=== PATIENT | female | born 2000 | race Caucasian/White ===

== ENCOUNTER → 2020-07-23 11:28 | Outpatient (BNVA) | payer OTHER, SELFPAY | PROVIDERS: Family Provider Pediatrics Adolescent Medicine; Visit Provider Obstetrics & Gynecology | DX: Z12.4 Encounter for screening for malignant neoplasm of cervix (principal) | CPT/HCPCS: 88175 ==

== ENCOUNTER → 2023-10-09 10:39 | Outpatient (BNVA) | payer OTHER, SELFPAY | PROVIDERS: Family Provider Pediatrics Adolescent Medicine; Referring Provider Nurse Practitioner Family; Visit Provider Physician Assistant | DX: M25.532 Pain in left wrist (principal); M67.432 Ganglion, left wrist | CPT/HCPCS: 73110 ==

== ENCOUNTER 2023-11-11 10:18 | Day surgery (SDC) | payer OTHER, SELFPAY ==
[2023-11-11 10:40] VITALS: BMI 31.9
--- NOTE | 2023-11-11 10:49 | W.PM.OPSFHP ---
Same Day Surgery H&P Indication for Procedure/HPI DATE OF PROCEDURE: November 11, 2023 CHIEF COMPLAINT/INDICATIONFOR SURGICAL PROCEDURE: Left dorsal wrist ganglion cyst PREOP DIAGNOSIS: Left dorsal wrist ganglion cyst PLANNED PROCEDURE: Operation Date: 11/11/23 11:30 Proposed Procedures p Excision Of Ganglion Cyst/ Left dorsal wrist ganglion cyst excision(Left) - Volodymyr Arreola DO Medications/Allergies* Allergies/Adverse Reactions Allergy/AdvReac Type Severity Reaction Status Date / Time No Known Allergies Allergy Verified 11/10/23 14:02 Pertinent History/Comorbid Conditions* Medical History (Updated 10/09/23 @ 11:25 by YELENA Barnett) No pertinent past medical history neghx:htn,dm,thyroid,dvt/pe PCP: none Surgical History (Updated 07/26/20 @ 18:34 by Quentin Lezama MD) S/P wisdom tooth extraction (~2018) Family History (Updated 07/30/21 @ 13:57 by Meaghan Nesbitt LPN) Colon cancer Grandfather Paternal---- dx age 57. Ovarian cancer Family/Other Maternal Aunt--- dx age 60. Breast cancer Grandmother Paternal---dx age 60. Hypertension Mother Father Denies family history of Diabetes Heart disease Hypercholesteremia Thyroid disease Stroke Pertinent Exam Findings alert, oriented x 3, operative site marked and procedure specific exam findings Patient has a palpable mobile cyst roughly 1.5 to 2 cm in size over the dorsal aspect of the wrist please refer to detailed orthopedic office note on 10/09/2023: Left wrist-tender palpable nodule approximately 1 cm in diameter on dorsal aspect of wrist. It is soft and mobile. No erythema, warmth or wound or purulent drainage seen. No concern for abscess. Patient has full range of motion of wrist. Fingers are warm and well-perfused. Recommendations Surgery/Procedure today Other Plans: Plan to proceed to the OR today for left dorsal wrist ganglion cyst excision. Patient understands the ins and outs procedure risk benefits complication alternatives of surgery. Risk of surgery include not limited to make a better make it worse persistent pain possible cyst recurrence and further surgery, risk stiffness and incisional site paresthesias. Understanding risk of surgery elects proceed all questions answered at this time. Coding Level of Care Code Acute Code for Chg Fwd
--- NOTE | 2023-11-11 10:53 | ANES.PREANE2 ---
Pre-Anesthetic Assessment Height/Weight: Height 1.73 m Weight 95.254 kg Preop Diagnosis: Left dorsal wrist ganglion cyst Operation Date: 11/11/23 11:30 Proposed Procedures p Excision Of Ganglion Cyst/ Left dorsal wrist ganglion cyst excision(Left) - Volodymyr Arreola DO Familial anesthetic complications: None Was Beta Royal taken within 24 hours: N/A Was Clonidine taken within 24 hours: N/A Last intake: > 8 hrs Social No alcohol and No tobacco Exam alert, oriented x 3, clear to auscultation bilaterally and regular rate & rhythm Airway Mallampati: Class II Dentition: other (permanent crown front top) Anesthetic Plan ASA status: 1 Anesthesia: Choice Risk of > 500 ml blood loss (7ml/kg in children): No Medications/Allergies Home Medications Medication Instructions Recorded Confirmed Last Taken Type norgestimate 0.25 mg-ethinyl 1 tab PO DAILY #84 tabs 08/02/21 11/10/23 11/10/23 Rx estradiol 35 mcg tablet (Sprintec ` (28)) hydrocodone 5 mg-acetaminophen 325 1 tab PO Q6H PRN pain 5 days #20 11/11/23 Unknown Rx mg tablet tabs ondansetron 4 mg disintegrating 4 mg PO Q8H PRN nausea and 11/11/23 Unknown Rx tablet vomiting 3 days #9 tabs Allergies Allergy/AdvReac Type Severity Reaction Status Date / Time No Known Allergies Allergy Verified 11/10/23 14:02 [facility] Anesthesia Medical History No pertinent past medical history neghx:htn,dm,thyroid,dvt/pe PCP: none Surgical History S/P wisdom tooth extraction (~2018) Family History Family/Other Ovarian cancer Maternal Aunt--- dx age 60. Grandmother Breast cancer Paternal---dx age 60. Grandfather Colon cancer Paternal---- dx age 57. Mother Hypertension Father Hypertension Denies family history of Diabetes Heart disease Hypercholesteremia Thyroid disease Stroke Data Anesthesia Cardiac Studies: No Data to Display
[2023-11-11] MEDS: ketorolac 30 mg/mL INJ IVP (10:58)
[2023-11-11] MEDS: scopolamine 1.5 Patch 1 PATCH TRANSDERMA (10:58)
[2023-11-11] MEDS: acetaminophen 1,000 MG/100 ML PIGGYBACK 400 MG IV (10:59)
[2023-11-11] MEDS: sodium chloride 0.9% 1,000 ML 30 ML IV (11:05)
[2023-11-11] MEDS: ceFAZolin 2,000 MG in sodium chloride 0.9% (plus) 50 ML 100 MG IV (11:08)
[2023-11-11] MEDS: lidocaine-epi 1% PF 1:200,000 30 mL SDV INJECTION (11:11)
[2023-11-11] MEDS: ROPivacaine 0.5% SDV 30 mL 150 MG (11:11)
[2023-11-11] MEDS: sodium bicarbonate 4.2% 0.5 mEq/mL SDV 5mL 1 MEQ INTRADERMA (11:11)
[2023-11-11 11:18] LABS: OR HCG Qualitative Urine Negative (Negative)
[2023-11-11 12:13] VITALS: BP 101/69; PULSE 99; RESP 20; TEMP 36.1; O2SAT 97
[2023-11-11 12:18] VITALS: BP 91/70; PULSE 102; RESP 22; O2SAT 98
--- NOTE | 2023-11-11 12:21 | W.PM.BPON ---
Date of Procedure: [November 11, 2023] Surgeon: [Dr. Elba DO] Superintendent Drilling(s): [Elio Arreola PA-C] Procedure(s) performed: [Left dorsal wrist cyst excision] Findings of the procedure(s): [Left dorsal wrist ganglion cyst] Estimated blood loss: [5 ml] Specimen(s) removed: [Cyst removed and sent to pathology for testing] Post-operative diagnosis: [Left dorsal wrist ganglion cyst]
[2023-11-11 12:23] VITALS: BP 115/74; PULSE 93; RESP 22; O2SAT 99
--- NOTE | 2023-11-11 12:23 | PM.PACU ---
PACU note Narrative: Patient is a 23-year-old female that just underwent a left wrist ganglion cyst excision. Patient transferred to PACU in stable condition. Pain is well controlled. Splint and Dressing on hand is dry and in place. Patient's fingers are warm and well-perfused. Patient can wiggle fingers. normal cap refill under 2 seconds. Patient has normal elbow range of motion. Sensation to hand intact Exam: awake Disposition: discharged
[2023-11-11 12:28] VITALS: BP 106/75; PULSE 92; RESP 19; O2SAT 99
[2023-11-11 12:31] VITALS: BP 115/62; PULSE 77; RESP 17; TEMP 36.1; O2SAT 99
[2023-11-11 12:47] VITALS: BP 123/75; PULSE 68; RESP 18; TEMP 36.1; O2SAT 98
--- NOTE | 2023-11-11 13:00 | ANE.PACU2 ---
Inpatient post-anesthesia follow up: Airway intact: Yes Vital signs: Temperature 97 F Pulse Rate 68 Respiratory Rate 18 Blood Pressure 123/75 Pulse Oximetry 98 Oxygen Delivery Me thod Room Air Oxygen Flow Rate Fraction of Inspir ed Oxygen Hydration adequate: Yes Nausea and vomiting: No Pain level: 1 Mental status: Baseline
--- NOTE | 2023-11-11 14:20 | P.OP_ITS ---
Operative Report Date of procedure: November 11, 2023 Surgeon: Volodymyr Arreola DO Surgical Instrument Maker: Elio Arreola PA-C: PA was necessary for assistance in this case with hand positioning to execute the procedure, retraction and protection of neurovascular structures as well as to assist with wound closure and dressing application. Procedure: Preoperative diagnosis: Left dorsal wrist ganglion cyst Postoperative diagnosis: Same procedure Left dorsal wrist?ganglion?cyst excision Specimens removed/disposition: Left dorsal wrist?ganglion?cyst excised and sent for pathology Surgeon: Volodymyr Arreola DO Estimated blood loss: 5mL Tourniquet time 18minutes IV fluids: See anesthesia record Complications: None Findings: See operative report narrative Condition: stable Disposition: same day Brief History: Patient's been worked up in the outpatient setting and findings consistent with preoperative diagnosis.? Patient has a Left dorsal wrist?ganglion?cyst.? Patient has attempted conservative treatment and this has become significantly painful.? We talked about treatment options as far as nonoperative and operative intervention.? At this point time patient like a more permanent solution in the lowest chance of recurrence and as result through shared decision making we agreed to proceed with a Left dorsal wrist?ganglion?cyst excision.? Patient understands risk benefits complication alternatives surgical nonsurgical treatment options.? Understanding risk of surgery patient agrees to proceed.? All questions answered.? Consent obtained in the office. Procedure: Patient seen evaluate in the preoperative holding area.? Consent was signed and reviewed with patient.? All questions were answered at that time.? Correct extremity was then marked.? Once seen evaluated by anesthesia patient was then brought back to the operative suite.? Patient was then placed in supine position all bony prominences well-padded patient was properly secured to the bed.? An armboard was then applied for the Left upper extremity.? A nonsterile tourniquet was applied to the Left upper extremity arm.? Patient then underwent anesthesia per the anesthesia department.? Once appropriately anesthetized the Left upper extremity was then prepped and draped in standard orthopedic fashion.? Final timeout performed.? Patient received appropriate preoperative antibiotics. Under sterile aseptic technique I began with local anesthetic for my preplanned surgical site.? Then I utilized an Esmarch tourniquet to exsanguinate the Left upper extremity to 250 mmHg Patient had a large soft mobile?ganglion?cyst which a incision was then centered longitudinally directly over the cyst over the dorsal aspect of the Left wrist.? sharp scalpel incision was made through skin and subcutaneous tissue.? I then switched to dissection scissors and spread longitudinally to identify branches of the superficial radial nerve.? These were protected throughout the case.? I immediately encountered the?ganglion?cyst which was just distal to the extensor retinaculum and between the third and fourth dorsal compartments.? I then protected the tendons and identified the?ganglion?cyst subsequently dissected circumferentially all the way to the base which was connected to the dorsal capsule.? This was then transected at the base with bipolar electrocautery.? I did have to excise some of the dorsal capsule that communicated with the cyst this had a broad connection and cyst stalk to the dorsal capsule. I utilized bipolar electrocautery to to seal off the dorsal capsule and prevent any further cyst recurrence.? Cyst was then sent for pathology.? I then thoroughly irrigated the wound bed tourniquet was deflated.? Hemostasis was satisfactory with bipolar electrocautery.? I then closed the incision in layered fashion with 3-0 Vicryl suture subcutaneously and running horizontal mattress nylon stitch for skin.? Xeroform over the incisions 4 x 4's ABD soft roll and a volar splint was applied.? Patient was then awakened from anesthesia and taken back in stable condition. Disposition: Patient taken back in stable condition recovering well.? Patient will receive appropriate discharge instructions as well as pain medication postoperatively.? Patient placed in a volar splint.? We will follow-up with in the orthopedic office in 2 weeks.? Patient understands of any questions or concerns and contact the office.
== END 2023-11-11 13:00 | disposition home or self-care (01) ==
PROVIDERS: Anesthesiology; Family Provider Pediatrics Adolescent Medicine; Visit Provider Student in an Organized Health Care Education/Training Program
PROC: (CPT 25111; principal; 2023-11-11 11:20)
DX: M67.432 Ganglion, left wrist (principal)
CPT/HCPCS: 25111; 81025; 88304; J0131; J0690; J1885; J2250; J2704; J2795; J3010; J7030

== ENCOUNTER → 2024-03-10 13:23 | Outpatient (BNVA) | payer OTHER, SELFPAY | PROVIDERS: Family Provider Pediatrics Adolescent Medicine; Visit Provider Nurse Practitioner Women's Health | DX: M54.9 Dorsalgia, unspecified (principal); N93.9 Abnormal uterine and vaginal bleeding, unspecified | CPT/HCPCS: 84702 ==

== ENCOUNTER 2024-03-11 06:35 | Outpatient (CLI) | payer OTHER, SELFPAY | END 2024-03-11 06:36 | disposition home or self-care (01) | LOC: RAD 06:37 | PROVIDERS: PCP Pediatrics Adolescent Medicine; Visit Provider Nurse Practitioner Women's Health | DX: N93.9 Abnormal uterine and vaginal bleeding, unspecified (principal); M54.9 Dorsalgia, unspecified | CPT/HCPCS: 36415; 84315; 84439; 84443; 85025 ==

== ENCOUNTER → 2024-03-24 09:25 | Outpatient (BNVA) | payer OTHER, SELFPAY | PROVIDERS: Family Provider Pediatrics Adolescent Medicine; Visit Provider Nurse Practitioner Women's Health | DX: Z12.4 Encounter for screening for malignant neoplasm of cervix (principal) | CPT/HCPCS: 88175 ==

== ENCOUNTER → 2024-11-16 10:04 | Outpatient (BNVA) | payer OTHER, SELFPAY | PROVIDERS: Family Provider Pediatrics Adolescent Medicine; Visit Provider Nurse Practitioner Women's Health | DX: N92.6 Irregular menstruation, unspecified (principal) | CPT/HCPCS: 81025; 84702 ==

== ENCOUNTER → 2024-12-06 10:40 | Outpatient (BNVA) | payer OTHER, SELFPAY | PROVIDERS: Family Provider Pediatrics Adolescent Medicine; Visit Provider Nurse Practitioner Women's Health | DX: Z36.87 Encounter for antenatal screening for uncertain dates (principal) | CPT/HCPCS: 76801 ==

== ENCOUNTER → 2024-12-30 08:16 | Outpatient (BNVA) | payer OTHER, SELFPAY | PROVIDERS: Family Provider Pediatrics Adolescent Medicine; Visit Provider Nurse Practitioner Women's Health | DX: Z34.01 Encounter for supervision of normal first pregnancy, first trimester (principal) | CPT/HCPCS: 80307; 84315; 85025; 86592; 86762; 86803; 86850; 86900; 87086; 87340; 87806 ==

== ENCOUNTER → 2025-01-10 13:35 | Outpatient (BNVA) | payer OTHER, SELFPAY | PROVIDERS: Family Provider Pediatrics Adolescent Medicine; Visit Provider Nurse Practitioner Women's Health | DX: Z34.90 Encounter for supervision of normal pregnancy, unspecified, unspecified trimester (principal) | CPT/HCPCS: 84315; 87491; 87591; 87661 ==

== ENCOUNTER → 2025-02-08 10:10 | Outpatient (BNVA) | payer OTHER, SELFPAY | PROVIDERS: Family Provider Pediatrics Adolescent Medicine; Visit Provider Nurse Practitioner Women's Health | DX: Z34.01 Encounter for supervision of normal first pregnancy, first trimester (principal); Z34.90 Encounter for supervision of normal pregnancy, unspecified, unspecified trimester | CPT/HCPCS: 82105; 84315 ==

== ENCOUNTER → 2025-03-07 09:33 | Outpatient (BNVA) | payer OTHER, SELFPAY | PROVIDERS: Family Provider Pediatrics Adolescent Medicine; Visit Provider Obstetrics & Gynecology | DX: Z36.9 Encounter for antenatal screening, unspecified (principal) | CPT/HCPCS: 76805 ==

== ENCOUNTER → 2025-03-15 10:16 | Outpatient (BNVA) | payer OTHER, SELFPAY | PROVIDERS: Family Provider Pediatrics Adolescent Medicine; Visit Provider Obstetrics & Gynecology | DX: Z34.00 Encounter for supervision of normal first pregnancy, unspecified trimester (principal); Z3A.21 21 weeks gestation of pregnancy | CPT/HCPCS: 84315 ==

== ENCOUNTER 2025-04-10 16:10 | Outpatient (CLI) | payer OTHER, SELFPAY ==
[2025-04-10] VITALS (14 sets, daily range): BP systolic 121–139; BP diastolic 73–89; PULSE 99–114; RESP 16–18; BMI 32.8
[2025-04-10 17:57] LABS: Hematocrit 35.9 % (36-47); Hemoglobin 12.10 g/dL (11.27-16.99); Mean Corpuscular HGB Conc 33.7 g/dL (30-55); Mean Corpuscular Hemoglobin 30.9 pg (27-33); Mean Corpuscular Volume 91.8 fl (85-98); Nucleated Red Blood Cells % 0 %; Platelet Count 211 10^3/cmm (157-399); Red Blood Count 3.91 10^6/uL (3.85-5.65); White Blood Count 15.25 10^3/uL (3.29-11.43)
[2025-04-10 18:04] LABS: Glucose Urine UA Negative (Normal); Nitrate Urine Negative (Negative); Specific Gravity, Urine 1.026 (1.005-1.030)
--- NOTE | 2025-04-10 19:21 | USR_ITS ---
PROCEDURE INFORMATION: Exam: US Abdomen, Limited; Right Upper Quadrant Exam date and time: 04/10/2025 7:56 PM Age: 25 years old Clinical indication: Abdominal pain; ; Additional info: Abdominal pain, right upper quadrant ultrasound for right upper quadrant TECHNIQUE: Imaging protocol: Real time ultrasound of the abdomen with image documentation. Limited exam focused on the right upper quadrant. COMPARISON: US OB >= 14 weeks fetus [id number] 03/07/2025 9:41 AM FINDINGS: Liver: Normal. No masses. Gallbladder: Several gallbladder polyps versus adherent gallstones measuring up to 7 mm, negative for cholecystitis. Biliary ducts: Normal. No stones. No dilation. Pancreas: Visualized pancreas is unremarkable. Right kidney: Normal. No mass. No hydronephrosis. US/US abdomen limited [id number] IMPRESSION: Several gallbladder polyps versus adherent gallstones measuring up to 7 mm, negative for cholecystitis.
[2025-04-10] MEDS: ondansetron 2 mg/ML SDV 2 mL 4 MG IVP (19:52)
== END 2025-04-10 21:41 | disposition home or self-care (01) ==
LOC: OPOB 16:15 → OBGYN 16:15
PROVIDERS: Family Provider Pediatrics Adolescent Medicine; Visit Provider Obstetrics & Gynecology
DX: O26.899 Other specified pregnancy related conditions, unspecified trimester (principal); Z3A.00 Weeks of gestation of pregnancy not specified; R10.9 Unspecified abdominal pain; R11.0 Nausea
CPT/HCPCS: 36415; 59025; 76705; 81001; 85025; 99211; J2405; J7030

== ENCOUNTER → 2025-05-01 10:21 | Outpatient (BNVA) | payer OTHER, SELFPAY | PROVIDERS: Family Provider Pediatrics Adolescent Medicine; Visit Provider Obstetrics & Gynecology | DX: Z3A.28 28 weeks gestation of pregnancy (principal) | CPT/HCPCS: 82950; 84315; 85025 ==

== ENCOUNTER → 2025-05-15 10:02 | Outpatient (BNVA) | payer OTHER, SELFPAY | PROVIDERS: Family Provider Pediatrics Adolescent Medicine; Visit Provider Obstetrics & Gynecology | DX: Z34.03 Encounter for supervision of normal first pregnancy, third trimester (principal); Z3A.30 30 weeks gestation of pregnancy | CPT/HCPCS: 84315 ==

== ENCOUNTER → 2025-06-05 13:09 | Outpatient (BNVA) | payer OTHER, SELFPAY | PROVIDERS: Family Provider Pediatrics Adolescent Medicine; Visit Provider Obstetrics & Gynecology | DX: Z34.03 Encounter for supervision of normal first pregnancy, third trimester (principal); Z3A.30 30 weeks gestation of pregnancy | CPT/HCPCS: 84315 ==

== ENCOUNTER → 2025-06-26 15:53 | Outpatient (BNVA) | payer OTHER, SELFPAY | PROVIDERS: Family Provider Pediatrics Adolescent Medicine; Visit Provider Obstetrics & Gynecology | DX: Z34.03 Encounter for supervision of normal first pregnancy, third trimester (principal); Z3A.36 36 weeks gestation of pregnancy | CPT/HCPCS: 84315; 87081 ==

== ENCOUNTER → 2025-07-03 10:22 | Outpatient (BNVA) | payer OTHER, SELFPAY | PROVIDERS: Family Provider Pediatrics Adolescent Medicine; Visit Provider Obstetrics & Gynecology | DX: Z34.93 Encounter for supervision of normal pregnancy, unspecified, third trimester (principal); Z3A.37 37 weeks gestation of pregnancy | CPT/HCPCS: 84315 ==